=== PATIENT | female | born 1995 | race Caucasian/White ===

== ENCOUNTER 2019-02-02 19:16 | Emergency (ER) | payer OTHER ==
[~2019-02-02] VITALS: Ht 167.6 cm; Wt 70.3 kg
[2019-02-02 19:25] VITALS: Ht 167.6 cm; Wt 70.3 kg
[2019-02-02 20:56] VITALS: BP 112/65
== END 2019-02-02 20:56 | disposition home or self-care (01) ==
LOC: ED 19:16
DX: K59.00 Constipation, unspecified (principal); F11.10 Opioid abuse, uncomplicated; F17.210 Nicotine dependence, cigarettes, uncomplicated; Z71.6 Tobacco abuse counseling; Z86.19 Personal history of other infectious and parasitic diseases
CPT/HCPCS: 99406